=== PATIENT | male | born 1945 | race Caucasian/White ===

== ENCOUNTER 2017-02-28 09:33 | Emergency (ER) | payer MEDICARE, OTHER ==
[2017-02-28 09:38] VITALS: BP 127/72
--- NOTE | 2017-02-28 09:53 | EDM.PDOC ---
ED HPI GENERAL MEDICAL PROBLEM - General Chief Complaint: Respiratory Problem Stated Complaint: "i think I have pneumonia" Time Seen by Provider: 02/28/17 09:44 Source of Information: Reports: Patient History Limitations: Reports: No Limitations - History of Present Illness INITIAL COMMENTS - FREE TEXT/NARRATIVE: Patient presents with complaints of sinus congestion, cough and just not feeling well. States has had history of pneumonia and now chest is starting to rattle as well. No shortness of breath. Denies fever. Mild headache. Noted postnasal drainage. 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 Onset: Gradual Duration: Day(s): Location: Reports: Chest Associated Symptoms: Reports: Cough, Fever/Chills. Denies: Chest Pain, cough w sputum, Diaphoresis, Loss of Appetite, Shortness of Breath - Related Data Allergies Allergy/AdvReac Type Severity Reaction Status Date / Time No Known Allergies Allergy Verified 02/28/17 09:38 Home Meds: Home Meds Cholecalciferol (Vitamin D3) [Vitamin D] 2,000 units PO DAILY 05/17/13 [History] Multivitamin [Daily Vitamin] 1 each PO DAILY 05/17/13 [History] Sertraline [Zoloft] 100 mg PO DAILY 05/17/13 [History] Losartan [Cozaar] 100 mg PO DAILY 08/31/15 [History] Pantoprazole Sodium 40 mg PO DAILY 08/31/15 [History] atorvaSTATin Calcium [Atorvastatin Calcium] 10 mg PO BEDTIME 03/18/16 [History] Past Medical History Cardiovascular History: Reports: High Cholesterol, Hypertension Gastrointestinal History: Reports: GERD Psychiatric History: Reports: Anxiety, Depression - Past Surgical History GI Surgical History: Reports: Hernia Repair/Other Musculoskeletal Surgical History: Reports: Carpal Tunnel, Shoulder Surgery, Other (See Below) Social & Family History - Tobacco Use Smoking Status *Q: Never Smoker - Caffeine Use Caffeine Use: Reports: None - Recreational Drug Use Recreational Drug Use: No ED ROS GENERAL - Review of Systems Review Of Systems: See Below Constitutional: Reports: Chills, Malaise, Fatigue. Denies: Fever, Weakness, Decreased Appetite HEENT: Reports: Rhinitis, Sinus Problem. Denies: Ear Pain, Throat Pain Respiratory: Reports: Cough, Other (chest rattly). Denies: Shortness of Breath , Sputum Cardiovascular: Denies: Chest Pain, Edema, Lightheadedness Endocrine: Reports: Fatigue GI/Abdominal: Denies: Abdominal Pain, Nausea, Vomiting : Reports: No Symptoms Musculoskeletal: Reports: No Symptoms Skin: Reports: No Symptoms Neurological: Reports: No Symptoms Psychiatric: Reports: No Symptoms ED EXAM, GENERAL - Physical Exam Exam: See Below Exam Limited By: No Limitations General Appearance: Alert, WD/WN, No Apparent Distress Ears: Normal External Exam, Normal TMs Nose: Normal Inspection, Normal Mucosa, Nasal Drainage Throat/Mouth: Normal Inspection, Normal Oropharynx Head: Normocephalic Neck: Normal Inspection, Supple, Non-Tender Respiratory/Chest: No Respiratory Distress, Rhonchi (in the bases) Cardiovascular: Regular Rate, Rhythm GI/Abdominal: Normal Bowel Sounds, Soft, Non-Tender Course - Vital Signs Last Recorded V/S: Last Vital Signs Temp 95.8 F 02/28/17 09:36 Pulse 54 L 02/28/17 09:36 Resp 18 02/28/17 09:36 BP 127/72 02/28/17 09:36 Pulse Ox 100 02/28/17 09:36 - Orders/Labs/Meds Orders: Active Orders 24 hr Category Date Time Status Chest 2V [CR] Stat Exams 02/28/17 09:48 Ordered Labs: Laboratory Tests 02/28/17 02/28/17 Range/Units 09:48 09:48 WBC 4.7 L (5.0-10.0) 10^3/uL RBC 4.72 (4.50-6.00) 10^6/uL Hgb 13.5 L (14.0-18.0) g/dL Hct 40.4 (40.0-54.0) % MCV 85.6 (82.0-94.0) fL MCH 28.6 (27.0-32.0) pg MCHC 33.4 (33.0-38.0) g/dL RDW Coeff of Fadia 13.2 (11.0-15.0) % Plt Count 165 (150-400) 10^3/uL Neut % (Auto) 68.3 (35-85) % Lymph % (Auto) 19.1 (10-55) % [place] % (Auto) 7.7 (0-16) % Eos % (Auto) 4.7 (0-5) % Baso % (Auto) 0.2 (0-3) % Neut # (Auto) 3.19 (1.80-7.00) 10^3/uL Lymph # (Auto) 0.89 L (1.00-4.80) 10^3/uL Wilson # (Auto) 0.36 (0.00-0.80) 10^3/uL Eos # (Auto) 0.22 (0.00-0.45) 10^3/uL Baso # (Auto) 0.01 10^3/uL Sodium 142 (136-145) mEq/L Potassium 4.4 (3.5-5.0) mEq/L Chloride 104 (98-106) mEq/L Carbon Dioxide 31 (21-32) mmol/L BUN 16 (7-18) mg/dL Creatinine 1.3 (0.7-1.3) mg/dL Est Cr Clr Drug Dosing 51.15 mL/min Estimated GFR (MDRD) 55 L (>=60) mL/min Glucose 102 H (75-99) mg/dL Calcium 8.9 (8.4-10.1) mg/dL C-Reactive Protein 0.9 H (0.2-0.8) mg/dL Meds: Medications Discontinued Medications Generic Name Dose Route Start Last Admin Trade Name Freq PRN Reason Stop Dose Admin Ceftriaxone Sodium 1 gm 02/28/17 10:48 Rocephin IM 02/28/17 10:49 ONETIME ONE Lidocaine HCl 20 ml 02/28/17 10:48 Xylocaine 1% INJECT 02/28/17 10:49 ONETIME ONE Methylprednisolone Acetate 80 mg 02/28/17 10:48 Depo-Medrol IM 02/28/17 10:49 ONETIME ONE - Re-Assessments/Exams Free Text/Narrative Re-Assessment/Exam: 02/28/17 10:57 Patient's labs are good. Chest xray is negative. Departure - Departure Time of Disposition: 10:59 Disposition: Home, Self-Care 01 Condition: Good Clinical Impression: Acute bronchitis - Discharge Information Referrals: Caio Christiansen PA-C [Primary Care Provider] - Forms: ED Department Discharge Additional Instructions: 1. Push fluids 2. Tylenol or ibuprofen for discomfort 3. Ceftin 250 mg twice a day for 10 days 4. Follow up with usual provider for any ongoing concerns. - My Orders Last 24 Hours: My Active Orders 02/28/17 09:48 Chest 2V [CR] Stat - Assessment/Plan Last 24 Hours: My Active Orders 02/28/17 09:48 Chest 2V [CR] Stat
[2017-02-28] MEDS ORDERED: cefTRIAXone 1 GM Vial IM ONE (10:48)
[2017-02-28] MEDS ORDERED: Lidocaine 1% 20 ML MDV INJECT ONE (10:48)
[2017-02-28] MEDS ORDERED: methylPREDNISolone Acetate 80 MG/ML SDV IM ONE (10:48)
== END 2017-02-28 11:20 | disposition home or self-care (01) ==
LOC: CC.ED 09:33
DX: J20.9 Acute bronchitis, unspecified (principal); E78.00 Pure hypercholesterolemia, unspecified; I10 Essential (primary) hypertension; F41.9 Anxiety disorder, unspecified; F32.9 Major depressive disorder, single episode, unspecified; Z79.899 Other long term (current) drug therapy
CPT/HCPCS: 36415; 71020; 80048; 85025; 86140; 96372; 99283; J0696; J1040

== ENCOUNTER 2017-07-22 16:42 | Emergency (ER) | payer MEDICARE, OTHER ==
[2017-07-22] MEDS: Aspirin 81 MG Tab.Chew PO ONE (16:48)
[2017-07-22 16:56] VITALS: BP 101/81
[2017-07-22 17:28] LABS: CHLORIDE,CL 105 mEq/L (98-106); SODIUM,NA 144 mEq/L (136-145)
--- NOTE | 2017-07-22 17:36 | EDM.PDOC ---
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 Has had problems with anxiety for years and he has been very stressed recently and he can feel it building up. He denies any shortness of breathe and currently denies any chest pain. He states that he feels fine and the pain he had was yesterday. Onset Date: 07/21/17 Left Chest Pain Score (Numeric/FACES): 0 - Related Data Allergies Allergy/AdvReac Type Severity Reaction Status Date / Time No Known Allergies Allergy Verified 07/22/17 16:56 Home Meds: Home Meds Cholecalciferol (Vitamin D3) [Vitamin D] 2,000 units PO DAILY 05/17/13 [History] Multivitamin [Daily Vitamin] 1 each PO DAILY 05/17/13 [History] Sertraline [Zoloft] 100 mg PO DAILY 05/17/13 [History] Losartan [Cozaar] 100 mg PO DAILY 08/31/15 [History] Pantoprazole Sodium 40 mg PO DAILY 08/31/15 [History] atorvaSTATin Calcium [Atorvastatin Calcium] 10 mg PO BEDTIME 03/18/16 [History] Past Medical History HEENT History: Reports: Impaired Vision Cardiovascular History: Reports: High Cholesterol, Hypertension Other Cardiovascular History: BRADYCARDIA Respiratory History: Reports: Pneumonia, Recurrent Gastrointestinal History: Reports: GERD Musculoskeletal History: Reports: Arthritis Psychiatric History: Reports: Anxiety, Depression - Past Surgical History GI Surgical History: Reports: Hernia Repair/Other Musculoskeletal Surgical History: Reports: Carpal Tunnel, Shoulder Surgery, Other (See Below) Social & Family History - Tobacco Use Smoking Status *Q: Never Smoker - Caffeine Use Caffeine Use: Reports: Soda - Recreational Drug Use Recreational Drug Use: No - Living Situation & Occupation Living situation: Reports: , with Family Occupation: Employed ED ROS GENERAL - Review of Systems Review Of Systems: See Below Constitutional: Reports: No Symptoms HEENT: Reports: No Symptoms Respiratory: Reports: No Symptoms Cardiovascular: Reports: Other (see HPI) GI/Abdominal: Reports: No Symptoms Musculoskeletal: Reports: No Symptoms Skin: Reports: No Symptoms Neurological: Reports: No Symptoms Psychiatric: Reports: Anxiety ED EXAM, GENERAL - Physical Exam Exam: See Below Exam Limited By: No Limitations General Appearance: Alert, WD/WN, No Apparent Distress Ears: Normal External Exam, Normal Canal, Normal TMs Nose: Normal Inspection Throat/Mouth: Normal Inspection, Normal Oropharynx, Normal Voice, No Airway Compromise Head: Atraumatic, Normocephalic Neck: Normal Inspection, Supple, Non-Tender, Full Range of Motion Respiratory/Chest: No Respiratory Distress, Lungs Clear, Normal Breath Sounds Cardiovascular: Regular Rate, Rhythm, No Edema GI/Abdominal: Normal Bowel Sounds, Soft, Non-Tender, No Organomegaly Extremities: Normal Inspection, Normal Range of Motion, No Pedal Edema, Normal Capillary Refill Neurological: Alert, Oriented Skin Exam: Warm, Dry, Intact Course - Vital Signs Last Recorded V/S: Last Vital Signs Temp 95.1 F L 07/22/17 16:49 Pulse 60 07/22/17 16:49 Resp 20 07/22/17 16:49 BP 101/81 07/22/17 16:49 Pulse Ox 97 07/22/17 16:49 - Orders/Labs/Meds Orders: Active Orders 24 hr Category Date Time Status Chest 2V [CR] Stat Exams 07/22/17 17:06 Taken Labs: Laboratory Tests 07/22/17 07/22/17 07/22/17 Range/Units 16:50 16:50 16:50 WBC 6.6 (5.0-10.0) 10^3/uL RBC 4.75 (4.50-6.00) 10^6/uL Hgb 13.8 L (14.0-18.0) g/dL Hct 39.9 L (40.0-54.0) % MCV 84.0 (82.0-94.0) fL MCH 29.1 (27.0-32.0) pg MCHC 34.6 (33.0-38.0) g/dL RDW Coeff of Fadia 13.4 (11.0-15.0) % Plt Count 189 (150-400) 10^3/uL Neut % (Auto) 70.0 (35-85) % Lymph % (Auto) 18.5 (10-55) % [place] % (Auto) 8.9 (0-16) % Eos % (Auto) 2.3 (0-5) % Baso % (Auto) 0.3 (0-3) % Neut # (Auto) 4.65 (1.80-7.00) 10^3/uL Lymph # (Auto) 1.23 (1.00-4.80) 10^3/uL [place] # (Auto) 0.59 (0.00-0.80) 10^3/uL Eos # (Auto) 0.15 (0.00-0.45) 10^3/uL Baso # (Auto) 0.02 10^3/uL PT 11.0 (9.7-12.3) SEC INR 1.02 (0.92-1.18) APTT 25.7 (24.5-30.9) SEC Sodium 144 (136-145) mEq/L Potassium 3.9 (3.5-5.0) mEq/L Chloride 105 (98-106) mEq/L Carbon Dioxide 29 (21-32) mmol/L BUN 28 H D (7-18) mg/dL Creatinine 1.7 H (0.7-1.3) mg/dL Est Cr Clr Drug Dosing 40.43 mL/min Estimated GFR (MDRD) 40 L (>=60) mL/min Glucose 114 H (75-99) mg/dL Calcium 8.9 (8.4-10.1) mg/dL Lactate Dehydrogenase 182 (100-190) U/L Creatine Kinase 146 (35-232) U/L Troponin I < 0.017 (0.00-0.06) ng/mL Meds: Medications Discontinued Medications Generic Name Dose Route Start Last Admin Trade Name Freq PRN Reason Stop Dose Admin Aspirin 324 mg 07/22/17 16:48 07/22/17 16:48 Aspirin PO 07/22/17 16:49 324 mg ONETIME ONE Administration Departure - Departure Time of Disposition: 17:34 Disposition: Home, Self-Care 01 Condition: Good Clinical Impression: Anxiety Referrals: Caio Christiansen PA-C [Primary Care Provider] - Forms: ED Department Discharge Additional Instructions: follow up with Marty tomorrow recheck sooner if any chest pain reoccurs. - Problem List & Annotations (1) Anxiety SNOMED Code(s): 52972328 Code(s): F41.9 - ANXIETY DISORDER, UNSPECIFIED Status: Acute Priority: High - Problem List Review Problem List Initiated/Reviewed/Updated: Yes - My Orders Last 24 Hours: My Active Orders 07/22/17 17:06 Chest 2V [CR] Stat - Assessment/Plan Last 24 Hours: My Active Orders 07/22/17 17:06 Chest 2V [CR] Stat
== END 2017-07-22 17:46 | disposition home or self-care (01) ==
LOC: CC.ED 16:42
DX: F41.9 Anxiety disorder, unspecified (principal); E78.00 Pure hypercholesterolemia, unspecified; I10 Essential (primary) hypertension; K21.9 Gastro-esophageal reflux disease without esophagitis; Z79.899 Other long term (current) drug therapy
CPT/HCPCS: 36415; 71046; 80048; 82550; 83615; 84484; 85025; 85610; 85730; 99285; A9270-GY

== ENCOUNTER 2019-04-10 18:58 | Emergency (ER) | payer MEDICARE, OTHER ==
[2019-04-10 19:00] VITALS: BP 158/82; PULSE 61
--- NOTE | 2019-04-10 19:56 | EDM.PDOC ---
ED HPI GENERAL MEDICAL PROBLEM - General Chief Complaint: Upper Extremity Injury/Pain Stated Complaint: L Shoulder Injury Time Seen by Provider: 04/10/19 19:20 Source of Information: Reports: Patient History Limitations: Reports: No Limitations - History of Present Illness INITIAL COMMENTS - FREE TEXT/NARRATIVE: Complaining of left shoulder and elbow pain. He has difficulty with lifting his arm. He is able to move the elbow but does cause some discomfort. He has decrease in ROM due to the pain. He can lift it if using the opposite arm but it does cause pain. He denies any numbness or tingling to the arm. No abrasions noted. Onset: Today Location: Reports: Upper Extremity, Left Quality: Reports: Throbbing Severity: Moderate Worsens with: Reports: Movement Associated Symptoms: Reports: No Other Symptoms l shoulder Pain Score (Numeric/FACES): 9 - Related Data Allergies Allergy/AdvReac Type Severity Reaction Status Date / Time No Known Allergies Allergy Verified 04/10/19 19:01 Home Meds: Home Meds Cholecalciferol (Vitamin D3) [Vitamin D] 2,000 units PO DAILY 05/17/13 [History] Multivitamin [Daily Vitamin] 1 each PO DAILY 05/17/13 [History] Sertraline [Zoloft] 100 mg PO DAILY 05/17/13 [History] Losartan [Cozaar] 100 mg PO DAILY 08/31/15 [History] Pantoprazole Sodium 40 mg PO DAILY 08/31/15 [History] atorvaSTATin Calcium [Atorvastatin Calcium] 10 mg PO BEDTIME 03/18/16 [History] Past Medical History HEENT History: Reports: Impaired Vision Cardiovascular History: Reports: High Cholesterol, Hypertension Other Cardiovascular History: BRADYCARDIA Respiratory History: Reports: Pneumonia, Recurrent Gastrointestinal History: Reports: GERD Musculoskeletal History: Reports: Arthritis Psychiatric History: Reports: Anxiety, Depression - Past Surgical History GI Surgical History: Reports: Hernia Repair/Other Musculoskeletal Surgical History: Reports: Carpal Tunnel, Shoulder Surgery, Other (See Below) Social & Family History - Family History Family Medical History: Noncontributory - Tobacco Use Smoking Status *Q: Never Smoker Second Hand Smoke Exposure: No - Caffeine Use Caffeine Use: Reports: None - Recreational Drug Use Recreational Drug Use: No - Living Situation & Occupation Living situation: Reports: , with Family Occupation: Employed Review of Systems - Review of Systems Review Of Systems: See Below Musculoskeletal: Reports: Shoulder Pain, Arm Pain Skin: Reports: No Symptoms. Denies: Bruising, Wound ED EXAM, GENERAL - Physical Exam Exam: See Below Exam Limited By: No Limitations General Appearance: Alert, WD/WN, Moderate Distress Respiratory/Chest: No Respiratory Distress Cardiovascular: Normal Peripheral Pulses, Regular Rate, Rhythm, No Edema Extremities: Normal Inspection, Limited Range of Motion (to left shoulder as it causes pain. Unable to lift on own. He is able to flex and extend elbow but it will cause discomfort. Good hand grasp in the neutral position. Good sensation distally. No bruising or open areas to elbow. No swelling noted.) Neurological: Alert, Oriented Skin Exam: Warm, Dry, Intact Course - Vital Signs Last Recorded V/S: Last Vital Signs Temp 96.3 F 04/10/19 18:58 Pulse 61 04/10/19 18:58 Resp 14 04/10/19 18:58 BP 158/82 H 04/10/19 18:58 Pulse Ox 98 04/10/19 18:58 - Orders/Labs/Meds Orders: Active Orders 24 hr Category Date Time Status Elbow Min 3V Lt [CR] Stat Exams 04/10/19 19:04 Taken Shoulder Comp Lt [CR] Stat Exams 04/10/19 19:04 Taken Meloxicam [Mobic] Med 04/10/19 20:00 Ordered 7.5 mg PO DAILY Medication Orders Meloxicam (Mobic) 7.5 mg PO DAILY [facility] Meds: Medications Generic Name Dose Route Start Last Admin Trade Name Freq PRN Reason Stop Dose Admin Meloxicam 7.5 mg 04/10/19 20:00 Mobic PO DAILY [facility] - Re-Assessments/Exams Free Text/Narrative Re-Assessment/Exam: 04/10/19 20:00 After returning from [place] he does have improved ROM. He can lift arm to about 90 degrees in all anteriorly and laterally. This does cause increase in discomfort. Will discharge on mobic with follow up later this week if not able to move it fully as he may need to have MRI in future. Departure - Departure Time of Disposition: 20:00 Disposition: Home, Self-Care 01 Condition: Good Clinical Impression: Left shoulder strain Qualifiers: Encounter type: initial encounter Qualified Code(s): S46.912A - Strain of unspecified muscle, fascia and tendon at shoulder and upper arm level, left arm , initial encounter Elbow contusion Qualifiers: Encounter type: initial encounter Laterality: left Qualified Code(s): S50.02XA - Contusion of left elbow, initial encounter - Discharge Information *PRESCRIPTION DRUG MONITORING PROGRAM REVIEWED*: Not Applicable *COPY OF PRESCRIPTION DRUG MONITORING REPORT IN PATIENT LISA: Not Applicable Instructions: Muscle Strain, [id number] Forms: ED Department Discharge Additional Instructions: If full ROM does not return then needs to follow up with PCP Mobic 7.5 mg daily for 10 days take with food Ice to elbow and shoulder twice a day for inflammation Use shoulder as tolerated. - Problem List & Annotations (1) Elbow contusion SNOMED Code(s): 21342003 Code(s): S50.00XA - CONTUSION OF UNSPECIFIED ELBOW, INITIAL ENCOUNTER Status: Acute Priority: High Qualifiers: Encounter type: initial encounter Laterality: left Qualified Code(s): S50.02XA - Contusion of left elbow, initial encounter (2) Left shoulder strain SNOMED Code(s): 368670916 Code(s): S46.912A - STRAIN UNSP MUSC/FASC/TEND AT SHLDR/UP ARM, LEFT ARM, INIT Status: Acute Priority: High Qualifiers: Encounter type: initial encounter Qualified Code(s): S46.912A - Strain of unspecified muscle, fascia and tendon at shoulder and upper arm level, left arm , initial encounter - Problem List Review Problem List Initiated/Reviewed/Updated: Yes - My Orders Last 24 Hours: My Active Orders 04/10/19 19:04 Elbow Min 3V Lt [CR] Stat Shoulder Comp Lt [CR] Stat 04/10/19 20:00 Meloxicam [Mobic] 7.5 mg PO DAILY - Assessment/Plan Last 24 Hours: My Active Orders 04/10/19 19:04 Elbow Min 3V Lt [CR] Stat Shoulder Comp Lt [CR] Stat 04/10/19 20:00 Meloxicam [Mobic] 7.5 mg PO DAILY
[2019-04-10] MEDS ORDERED: Meloxicam 7.5 MG Tab PO SCH (20:00)
== END 2019-04-10 20:10 | disposition home or self-care (01) ==
LOC: CC.ED 18:58
DX: S46.912A Strain of unspecified muscle, fascia and tendon at shoulder and upper arm level, left arm, initial encounter (principal); S50.02XA Contusion of left elbow, initial encounter; I10 Essential (primary) hypertension; E78.00 Pure hypercholesterolemia, unspecified; F32.9 Major depressive disorder, single episode, unspecified; F41.9 Anxiety disorder, unspecified; Z79.899 Other long term (current) drug therapy; W00.0XXA Fall on same level due to ice and snow, initial encounter; Y93.89 Activity, other specified
CPT/HCPCS: 73030-LT; 73080-LT; 99283; 99283-25

== ENCOUNTER 2019-12-26 18:33 | Emergency (ER) | payer MEDICARE, OTHER ==
[2019-12-26] MEDS ORDERED: Acetaminophen/HYDROcodone 325-5 MG Tab PO ONE (18:34)
[2019-12-26] MEDS ORDERED: Cyclobenzaprine 10 MG Tab PO ONE (18:34)
[2019-12-26 18:42] VITALS: BP 126/74; PULSE 66
--- NOTE | 2019-12-26 19:56 | EDM.PDOC ---
ED HPI GENERAL MEDICAL PROBLEM - General Chief Complaint: Back Pain or Injury Stated Complaint: R) knee and lower back pain Time Seen by Provider: 12/26/19 19:38 Source of Information: Reports: Patient History Limitations: Reports: No Limitations - History of Present Illness INITIAL COMMENTS - FREE TEXT/NARRATIVE: Toño is a 74 yo male who presents to the ED tonight with complaints of low back pain. 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 ADmits the pain is worse on the right than the left. States certain movements seems to make it worse. Denies any bowel or bladder dysfunction. No fevers. States he hasn't had any COVID symptoms. Location: Reports: Back Quality: Reports: Sharp Improves with: Reports: Immobilization Worsens with: Reports: Movement Associated Symptoms: Reports: No Other Symptoms Lower Back Pain Score (Numeric/FACES): 9 - Related Data Allergies Allergy/AdvReac Type Severity Reaction Status Date / Time No Known Allergies Allergy Verified 12/26/19 18:36 Home Meds: Home Meds Cholecalciferol (Vitamin D3) [Vitamin D] 2,000 units PO DAILY 05/17/13 [History] Multivitamin [Daily Vitamin] 1 each PO DAILY 05/17/13 [History] Sertraline [Zoloft] 100 mg PO DAILY 05/17/13 [History] Losartan [Cozaar] 100 mg PO DAILY 08/31/15 [History] Pantoprazole Sodium 40 mg PO DAILY 08/31/15 [History] atorvaSTATin Calcium [Atorvastatin Calcium] 10 mg PO BEDTIME 03/18/16 [History] Past Medical History HEENT History: Reports: Impaired Vision Cardiovascular History: Reports: High Cholesterol, Hypertension Other Cardiovascular History: BRADYCARDIA Respiratory History: Reports: Pneumonia, Recurrent Gastrointestinal History: Reports: GERD Other Genitourinary History: Prostate cancer. Musculoskeletal History: Reports: Arthritis Psychiatric History: Reports: Anxiety, Depression Oncologic (Cancer) History: Reports: Prostate - Past Surgical History Cardiovascular Surgical History: Reports: None Respiratory Surgical History: Reports: None GI Surgical History: Reports: Hernia Repair/Other Male Surgical History: Reports: Prostatectomy Musculoskeletal Surgical History: Reports: Carpal Tunnel, Shoulder Surgery, Other (See Below) Social & Family History - Family History Family Medical History: Noncontributory - Tobacco Use Smoking Status *Q: Never Smoker Second Hand Smoke Exposure: No - Caffeine Use Caffeine Use: Reports: None - Recreational Drug Use Recreational Drug Use: No - Living Situation & Occupation Living situation: Reports: , with Family Occupation: Employed ED ROS GENERAL - Review of Systems Review Of Systems: Comprehensive ROS is negative, except as noted in HPI. ED EXAM,LOWER BACK PAIN/INJURY - Physical Exam Exam: See Below Exam Limited By: No Limitations General Appearance: Alert, WD/WN, No Apparent Distress Respiratory/Chest: No Respiratory Distress, Lungs Clear, Normal Breath Sounds, No Accessory Muscle Use Cardiovascular: Regular Rate, Rhythm, No Murmur GI/Abdominal: Normal Bowel Sounds, Soft, Non-Tender, No Organomegaly, No D istention Back Exam: Muscle Spasm, Paraspinal Tenderness (right worse than left), Other (increase discomfort with right rotation of the low back. ). No: CVA Tenderness (L), CVA Tenderness (R), Decreased Range of Motion Neurological: Alert, Normal Mood/Affect, Normal Gait, Normal Reflexes, No Motor/Sensory Deficits Psychiatric: Normal Affect, Normal Mood Skin Exam: Warm, Dry, Intact, Normal Color, No Rash Course - Vital Signs Last Recorded V/S: Last Vital Signs Temp 98.0 F 12/26/19 18:41 Pulse 66 12/26/19 18:41 Resp 18 12/26/19 18:41 BP 126/74 12/26/19 18:41 Pulse Ox 98 12/26/19 18:41 Departure - Departure Time of Disposition: 19:52 Disposition: Home, Self-Care 01 Clinical Impression: Spasm of lumbar paraspinous muscle - Discharge Information Instructions: Muscle Strain, [id number], Muscle Cramps and Spasms, [id number] Referrals: Caio Christiansen PA-C [Primary Care Provider] - Additional Instructions: 1) [place] 5/325 - 1 tablet every 4 - 6 hours as needed for pain 2) Flexeril 10mg - 1 tablet every 8 hours for back spasms 3) Apply heat to affected area 4) Recheck in clinic tomorrow at 3:45 pm 5) Return if any fevers, worsening of pain, bowel or bladder dysfunction Sepsis Event Note (ED) - Evaluation Sepsis Screening Result: No Definite Risk - Focused Exam Vital Signs: Vital Signs Temp Pulse Resp BP Pulse Ox 12/26/19 18:41 98.0 F 66 18 126/74 98 - Problem List & Annotations (1) Spasm of lumbar paraspinous muscle SNOMED Code(s): 45707298838932718, [id number] Code(s): M62.830 - MUSCLE SPASM OF BACK Status: Acute Current Visit: Yes - Assessment/Plan Plan: Discussed findings with Alfredo. Will treat with muscle relaxer and pain medication tonight. Follow up in clinic tomorrow at 345 for recheck. May get laboratory work and imaging if no improvement as discussed. Patient is in agreement.
[2019-12-26] MEDS: Take Home: Acetaminophen/HYDROcodone 325-5 MG, 2 Tab Pack PO ONE (20:08)
[2019-12-26] MEDS: Take Home: Cyclobenzaprine 10 MG Tab, 4 Tab Pack PO ONE (20:08)
== END 2019-12-26 20:14 | disposition home or self-care (01) ==
LOC: CC.ED 18:33
DX: M62.830 Muscle spasm of back (principal); I10 Essential (primary) hypertension; F32.9 Major depressive disorder, single episode, unspecified; F41.9 Anxiety disorder, unspecified; F19.10 Other psychoactive substance abuse, uncomplicated; E78.00 Pure hypercholesterolemia, unspecified; K21.9 Gastro-esophageal reflux disease without esophagitis; Z79.899 Other long term (current) drug therapy
CPT/HCPCS: 99283; A9270-GY

== ENCOUNTER 2021-06-29 11:18 | Emergency (ER) | payer MEDICARE, OTHER ==
[2021-06-29 11:42] VITALS: BP 160/94; PULSE 69
== END 2021-06-29 12:16 | disposition home or self-care (01) ==
LOC: CC.ED 11:18
DX: B34.9 Viral infection, unspecified (principal); E78.00 Pure hypercholesterolemia, unspecified; I10 Essential (primary) hypertension; K21.9 Gastro-esophageal reflux disease without esophagitis; Z79.899 Other long term (current) drug therapy; Z20.822 Contact with and (suspected) exposure to COVID-19
CPT/HCPCS: 87804; 99283; 99284; U0002

== ENCOUNTER 2021-07-11 12:18 | Emergency (ER) | payer MEDICARE, OTHER ==
[2021-07-11 12:38] VITALS: BP 144/93; PULSE 81
== END 2021-07-11 13:25 | disposition home or self-care (01) ==
LOC: CC.ED 12:18
DX: R05.9 Cough, unspecified (principal); E78.00 Pure hypercholesterolemia, unspecified; I10 Essential (primary) hypertension; K21.9 Gastro-esophageal reflux disease without esophagitis; Z79.899 Other long term (current) drug therapy
CPT/HCPCS: 36415; 71046; 80053; 85025; 87804; 99283; U0002; 10120

== ENCOUNTER 2021-07-19 11:08 | Emergency (ER) | payer MEDICARE, OTHER ==
[2021-07-19] MEDS ORDERED: Sodium Chloride 0.9% 10 ML Syringe FLUSH PRN (11:22)
[2021-07-19] MEDS ORDERED: Iopamidol 755 Mg/ML 100 ML Bottle IVPUSH ONE (11:49)
[2021-07-19 12:04] VITALS: BP 143/79; PULSE 66
== END 2021-07-19 12:40 | disposition home or self-care (01) ==
LOC: CC.ED 11:08
DX: R10.31 Right lower quadrant pain (principal); E78.00 Pure hypercholesterolemia, unspecified; I10 Essential (primary) hypertension; K21.9 Gastro-esophageal reflux disease without esophagitis; Z79.899 Other long term (current) drug therapy
CPT/HCPCS: 36415; 74177; 80053; 81001; 85025; 86140; 99284; 99284-25; Q9967

== ENCOUNTER 2022-08-20 16:22 | Observation (INO) | payer MEDICARE, OTHER ==
[2022-08-20 17:07] LABS: CHLORIDE,CL 105 mEq/L (98-106); SODIUM,NA 141 mEq/L (136-145)
[2022-08-20 17:11] LABS: ESTIMATED GFR 42 mL/min (>=60)
[2022-08-20] MEDS ORDERED: Acetaminophen 325 MG Tab PO PRN (19:18)
[2022-08-20] MEDS ORDERED: atorvaSTATin 10 MG Tab PO SCH (20:00)
[2022-08-20] MEDS: Apixaban 5 MG Tab PO SCH (20:40)
[2022-08-21] MEDS ORDERED: Losartan 100 MG Tab PO SCH (08:00)
[2022-08-21] MEDS ORDERED: Sertraline 100 MG Tab PO SCH (08:00)
[2022-08-21] MEDS ORDERED: amLODIPine 2.5 MG Tab PO SCH (08:00)
[2022-08-21] MEDS ORDERED: Cholecalciferol (Vitamin D3) 25 MCG Tab PO SCH (08:00)
[2022-08-21] MEDS ORDERED: Multivitamin Tab PO SCH (08:00)
[2022-08-21] MEDS ORDERED: Pantoprazole 40 MG Tab.CR PO SCH (08:00)
[2022-08-21] MEDS: Apixaban 5 MG Tab PO SCH (08:15)
[2022-08-21 09:57] VITALS: BP 115/75; PULSE 64
== END 2022-08-21 10:08 | disposition home or self-care (01) ==
LOC: CC.ED 16:22 → UNDOADMOB 18:45 → CC.MS 18:45
PROVIDERS: ADMIT Nurse Practitioner Family; ATTEND Nurse Practitioner Family
DX: G45.9 Transient cerebral ischemic attack, unspecified (principal); I48.92 Unspecified atrial flutter; I10 Essential (primary) hypertension; E78.00 Pure hypercholesterolemia, unspecified; K21.9 Gastro-esophageal reflux disease without esophagitis; F41.9 Anxiety disorder, unspecified; F32.A Depression, unspecified; M19.90 Unspecified osteoarthritis, unspecified site; Z98.890 Other specified postprocedural states; Z79.899 Other long term (current) drug therapy
CPT/HCPCS: 36415; 70450; 80053; 81001; 82550; 84484; 85025; 85610; 85730; 86140; 93005; 93010; 93246; 99223; 99238; 99285; A9270-GY; G0378

== ENCOUNTER 2023-03-13 07:19 | Emergency (ER) | payer MEDICARE, OTHER ==
[2023-03-13 07:23] VITALS: BP 133/73; PULSE 66
[2023-03-13 07:35] LABS: BASOPHILS ABSOLUTE AUTO 0.03 10^3/uL (0.00-0.50); BASOPHILS PERCENT AUTO 0.8 % (0-1); EOSINOPHILS ABSOLUTE AUTO 0.19 10^3/uL (0.00-1.50); EOSINOPHILS PERCENT AUTO 4.8 % (0-6); HEMOGLOBIN 13.7 g/dL (14.0-18.0); IMMATURE GRAN ABSOLUTE AUTO 0.02 10^3/uL (0.00-0.49); IMMATURE GRAN PERCENT AUTO 0.5 % (0.0-4.9); LYMPHOCYTES ABSOLUTE AUTO 0.72 10^3/uL (0.60-5.00); LYMPHOCYTES PERCENT AUTO 18.3 % (24-44); MEAN CORPUSCULAR HEMOGLOBIN 28.8 pg (27.0-32.0); MEAN CORPUSCULAR HGB CONC 33.4 g/dL (32.0-36.0); MEAN CORPUSCULAR VOLUME 86.3 fL (83.0-97.0); MONOCYTES ABSOLUTE AUTO 0.34 10^3/uL (0.00-1.50); MONOCYTES PERCENT AUTO 8.6 % (0-10); NEUTROPHILS ABSOLUTE AUTO 2.64 x10^3/uL (1.80-8.00); PLATELET COUNT,PLT 176 10^3/uL (150-400); RED BLOOD CELL COUNT 4.75 x10^6/uL (4.50-6.00); WHITE BLOOD CELL COUNT,WBC 3.9 10^3/uL (4.0-11.0)
[2023-03-13 07:49] LABS: ALBUMIN 4.1 g/dL (3.4-5.0); BILIRUBIN TOTAL 1.2 mg/dL (0.0-1.0); CREATININE 1.6 mg/dL (0.7-1.3); POTASSIUM,K 4.3 mEq/L (3.5-5.0); PROTEIN TOTAL,TP 7.4 g/dL (6.4-8.2)
[2023-03-13 07:53] LABS: INR 1.11 (0.92-1.18); PROTHROMBIN TIME 11.4 SEC (9.3-11.3)
[2023-03-13 08:11] LABS: APPEARANCE,URINE CLEAR (CLEAR); BILIRUBIN,URINE NEGATIVE (NEGATIVE); COLOR,URINE YELLOW (YELLOW); GLUCOSE,URINE NEGATIVE (NEGATIVE); KETONES,URINE TRACE mg/dL (NEGATIVE); LEUKOCYTE ESTERASE,URINE NEGATIVE (NEGATIVE); NITRITE,URINE NEGATIVE (NEGATIVE); OCCULT BLOOD,URINE NEGATIVE (NEGATIVE); PH,URINE 7.5 (4.5-8.0); PROTEIN,URINE 100 mg/dL (NEGATIVE)
[2023-03-13 08:28] LABS: BACTERIA,URINE OCCASIONAL /HPF (NOT SEEN); EPITHELIAL CELLS,URINE OCCASIONAL /HPF (NOT SEEN); MUCUS,URINE FEW /HPF (NOT SEEN); RBC,URINE 0-5 /HPF (0-5); WBC,URINE 0-5 /HPF (0-5)
[2023-03-13] MEDS ORDERED: Lidocaine 5% 700 MG Patch TRDERM ONE (09:07)
== END 2023-03-13 09:25 | disposition home or self-care (01) ==
LOC: CC.ED 07:19
DX: S09.90XA Unspecified injury of head, initial encounter (principal); S20.212A Contusion of left front wall of thorax, initial encounter; W17.89XA Other fall from one level to another, initial encounter
CPT/HCPCS: 36415; 70450; 71101-LT; 80053; 81001; 82150; 83605; 85025; 85610; 93005; 93010; 99284; A9270-GY

== ENCOUNTER 2023-07-09 07:24 | Day surgery (SDC) | payer MEDICARE, OTHER ==
[2023-07-09] MEDS: Lactated Ringers 1,000 ML IV SCH (07:41)
[2023-07-09] MEDS ORDERED: Ketamine 200 MG/20 ML MDV ONE (08:02)
[2023-07-09] MEDS ORDERED: Propofol 200 MG/20 ML SDV ONE (08:02)
[2023-07-09] MEDS ORDERED: fentaNYL 50 MCG/ML SDV ONE (08:02)
[2023-07-09 09:05] VITALS: BP 136/75; PULSE 55
== END 2023-07-09 09:10 | disposition home or self-care (01) ==
LOC: CC.SDS 07:24
PROVIDERS: ATTEND Family Medicine
DX: Z12.11 Encounter for screening for malignant neoplasm of colon (principal); D12.3 Benign neoplasm of transverse colon; D12.5 Benign neoplasm of sigmoid colon; K57.30 Diverticulosis of large intestine without perforation or abscess without bleeding; J45.909 Unspecified asthma, uncomplicated; Z86.16 Personal history of COVID-19
CPT/HCPCS: 00811; 45385; 88305; 99100; J2704; J3010; J3490; J7120

== ENCOUNTER 2023-09-27 18:57 | Emergency (ER) | payer MEDICARE, OTHER ==
[2023-09-27 19:00] VITALS: BP 153/82; PULSE 65
[2023-09-27] MEDS: Albuterol/Ipratropium 3.0-0.5 MG/3 ML Neb Soln NEB ONE (19:08)
[2023-09-27] MEDS: methylPREDNISolone Sodium Succinate 40 MG/1 ML SDV IM ONE (20:17)
[2023-09-27] MEDS: Albuterol 6.7 GM Inhaler INH ONE (20:18)
[2023-09-27] MEDS: Cefuroxime 250 MG Tab PO STA (20:18)
== END 2023-09-27 20:29 | disposition home or self-care (01) ==
LOC: CC.ED 18:57
DX: J20.9 Acute bronchitis, unspecified (principal); I10 Essential (primary) hypertension; E78.00 Pure hypercholesterolemia, unspecified; K21.9 Gastro-esophageal reflux disease without esophagitis; Z79.899 Other long term (current) drug therapy; Z79.01 Long term (current) use of anticoagulants
CPT/HCPCS: 94640; 96372; 99283; 99284; A9270-GY; J2920; J7620-GY